=== PATIENT | male | born 1965 | race Hispanic/Latino ===

== ENCOUNTER 2020-11-09 06:22 | Day surgery (SDC) | payer BC ==
[2020-11-09] MEDS ORDERED: EPINEPHrine 0.3 MG, Dextrose 50% 3 ML in Ophthalmic Irrigation Solution 500 ML IRR SCH (06:30)
[2020-11-09] MEDS ORDERED: Midazolam HCl 2 mg/2 ml Vial ONE (06:32)
[2020-11-09] MEDS ORDERED: Fentanyl 100 MCG/2 ML VIAL ONE (06:32)
[2020-11-09] MEDS ORDERED: Cyclopentolate 1% Opth Drop 2 ML BOT ONE (06:46)
[2020-11-09] MEDS ORDERED: Phenylephrine 2.5% Ophth Soln 5 ML BOT ONE (06:47)
[2020-11-09] MEDS ORDERED: Triamcinolone 40 MG/ML VIAL ONE (09:41)
[2020-11-09] MEDS ORDERED: Lidocaine 4% PF 5 ML AMP ONE (09:41)
[2020-11-09] MEDS ORDERED: Maxitrol 0.1% Opth Oint 3.5 GM TUBE ONE (09:41)
[2020-11-09] MEDS ORDERED: Lidocaine 1% PF 5 ML VIAL ONE (09:41)
[2020-11-09] MEDS ORDERED: Bupivacaine PF 0.75% SDV 10 ML ONE (09:41)
[2020-11-09] MEDS ORDERED: PROPOFOL 200 MG/20 ML VIAL ONE (09:41)
[2020-11-09] MEDS ORDERED: CEFAZOLIN 1 GM VIAL ONE (09:41)
--- NOTE | 2020-11-09 21:49 | OP ---
DATE OF PROCEDURE: 11/09/2020 PREOPERATIVE DIAGNOSES: Vitreous hemorrhage, epiretinal membrane, left eye. POSTOPERATIVE DIAGNOSES: Vitreous hemorrhage, epiretinal membrane, left eye. PROCEDURES PERFORMED: Pars plana vitrectomy, epiretinal membrane peel, panretinal photocoagulation, left eye. ANESTHESIA: Local with monitored anesthesia care. DESCRIPTION OF PROCEDURE: The patient was identified in the preoperative holding area. Appropriate informed consent for the planned surgical procedure on the left eye had been obtained. The patient was transported to the operative suite. Appropriate cardiopulmonary monitoring was established. Local anesthesia was obtained using retrobulbar modified Van Lint lid block using 50:50 mixture of 4% lidocaine and 0.75% bupivacaine. The patient was prepped and draped in usual sterile manner for ophthalmic surgery, left eye. Lid speculum was placed in the left eye. A 27-gauge trocar was placed superotemporally, inferotemporally, supranasally. Infusion line was placed inferotemporally. Light pipe and vitreous cutter were inserted to the eye. Core vitrectomy was performed. Posterior hyaloid face was noted to be adherent to the nerve and to the proliferation along the supratemporal arcade. This was dissected away carefully. Proliferation was trimmed down, further membranes were excised, and hemorrhage was halted with direct application of cautery. No further bleeding was identified. Panretinal photocoagulation was placed into the retinal periphery without complication. Trocars were removed. Eye was noted to retain pressure well. Retrobulbar Kenalog and subconjunctival Ancef were placed. Antibiotic ointment was placed. Eye was patched and shielded. The patient was taken to postop recovery unit in good condition, having suffered no immediate perioperative complications. The patient was instructed to keep patch and shied on, avoid lifting or bending. Followup appointment with Dr. Braun. Job ID: [id number]
== END 2020-11-09 09:30 | disposition home or self-care (01) ==
LOC: SDC 06:22
PROVIDERS: ATTEND Ophthalmology Retina Specialist
DX: H43.12 Vitreous hemorrhage, left eye (principal); H35.372 Puckering of macula, left eye; E11.9 Type 2 diabetes mellitus without complications; Z88.5 Allergy status to narcotic agent; Z88.8 Allergy status to other drugs, medicaments and biological substances
CPT/HCPCS: 36416; J0171; J0690; J2250; J2704; J3010; J3301; J3490